=== PATIENT | female | born 1980 | race Caucasian/White ===

== ENCOUNTER 2021-08-11 18:32 | Emergency (ER) | payer OTHER ==
[2021-08-11 18:38] VITALS: BP 129/81; PULSE 71; TEMP 98.3; BMI 22.1
[2021-08-11] MEDS ORDERED: IBUPROFEN 400 MG TABLET (FP) PO ONE (19:14)
[2021-08-11] MEDS ORDERED: DIPHTH,PERTUSS(ACELL),TET 0.5 ML DISP.SYRIN IM ONE ×2 (19:23→20:45)
[2021-08-12] MEDS ORDERED: DIPHTH,PERTUSS(ACELL),TET 0.5 ML DISP.SYRIN IM ONE (20:35)
== END 2021-08-11 20:30 | disposition home or self-care (01) ==
LOC: JERFT 18:32
PROC: 3E0234Z Introduction of Serum, Toxoid and Vaccine into Muscle, Percutaneous Approach (ICD-10-PCS; principal; 2021-08-11)
DX: S62.602B Fracture of unspecified phalanx of right middle finger, initial encounter for open fracture (principal); W23.0XXA Caught, crushed, jammed, or pinched between moving objects, initial encounter
CPT/HCPCS: 73140-TC-RT-FY; 90715; 99283-25